=== PATIENT | male | born 1945 | race Caucasian/White ===

== ENCOUNTER → 2020-05-14 | Outpatient (CLI) | payer OTHER | END | disposition home or self-care (01) | LOC: CVU 10:02 | PROVIDERS: ATTEND Internal Medicine Cardiovascular Disease | DX: I08.8 Other rheumatic multiple valve diseases (principal); I10 Essential (primary) hypertension; R07.89 Other chest pain; F17.211 Nicotine dependence, cigarettes, in remission; Z95.1 Presence of aortocoronary bypass graft | CPT/HCPCS: 93306; 93356; 93978 ==

== ENCOUNTER → 2020-06-17 | Outpatient (CLI) | payer OTHER ==
[~2020-06-17] MED LIST: REGADENOSON 0.4 MG/5 ML SYRINGE ONE
== END | disposition home or self-care (01) ==
LOC: CFH 06-15 07:50
PROVIDERS: ATTEND Internal Medicine Cardiovascular Disease
DX: I25.9 Chronic ischemic heart disease, unspecified (principal); R07.89 Other chest pain; I10 Essential (primary) hypertension; F17.211 Nicotine dependence, cigarettes, in remission; Z95.1 Presence of aortocoronary bypass graft
CPT/HCPCS: 78452; 93017; A9502; J2785